=== PATIENT | male | born 1930 | race Caucasian/White ===

== ENCOUNTER 2016-11-06 20:55 | Observation (INO) | payer OTHER ==
[~2016-11-06] VITALS: Ht 180.3 cm; Wt 50.7 kg
[2016-11-06 21:50] LABS: HEMATOCRIT 48.6 % (38.0-50.0); MCH 31.8 PG (29.0-34.0); MCHC 33.3 G/DL (30.0-36.0); MCV 95.5 FL (86-99); MEAN PLAT.VOLUME 9.8 uM^3 (9.0-12.4); PLATELET COUNT 151 K/uL (156-360); RBC DIS.WIDTH-CV 12.7 % (11.8-14.6); RBC DIS.WIDTH-SD 45.3 % (39-53); RED BLOOD COUNT 5.09 M/uL (4.00-5.50); WHITE BLOOD COUNT 6.8 K/uL (4.1-10.2)
[2016-11-06 21:58] LABS: CHLORIDE 111 mEq/L (99-109); POTASSIUM 4.9 mEq/L (3.7-5.4); SODIUM 143 mEq/L (136-147)
[2016-11-06 22:00] LABS: GLUCOSE 97 mg/dL (70-99)
[2016-11-06 22:01] LABS: ANION GAP 14 MEQ/L (2-14)
[2016-11-06 22:04] LABS: GFR ESTIMATE (CALCULATED) 41 mL/min/; UREA NITROGEN (BUN) 51 mg/dL (9-23)
[2016-11-06 23:59] LABS: INTER. NORMALIZED RATIO 1.1; PROTHROMBIN TIME 11.7 (9.2-11.2); PTT 28.5 (25-32)
[2016-11-07 00:07] LABS: TROP-I INTERPRETATION NEGATIVE; TROPONIN-I < 0.01 ng/mL (0.0-0.30)
[2016-11-07] MEDS ORDERED: ALEVE220 MG PO (00:42)
[2016-11-07] MEDS ORDERED: PROAIR HFA8.5 GM IH (00:42)
[2016-11-07] MEDS ORDERED: ALBUTEROL2.5 MG/3 M IH (00:42)
[2016-11-07] MEDS ORDERED: PROSTATE MEDICATION PO (00:48)
[2016-11-07 05:06] VITALS: BP 176/85
[2016-11-07 06:28] VITALS: BP 128/59
[2016-11-07 06:37] LABS: ALKALINE PHOSPHATASE 64 IU/L (3-129); ANION GAP 11 MEQ/L (2-14); CHLORIDE 113 MEQ/L (99-109); GFR ESTIMATE (CALCULATED) 44 mL/min/; GLUCOSE 138 mg/dL (70-99); POTASSIUM 4.7 MEQ/L (3.7-5.4); SAMPLE HEMOLYSIS CHECK 0; SAMPLE ICTERIC CHECK 0; SAMPLE LIPEMIA CHECK 0; SODIUM 145 MEQ/L (136-147); UREA NITROGEN (BUN) 47 mg/dL (9-23)
[2016-11-07 06:45] LABS: HEMATOCRIT 45.4 % (38.0-50.0); MCH 30.6 PG (29.0-34.0); MCHC 32.2 G/DL (30.0-36.0); MCV 95.2 FL (86-99); MEAN PLAT.VOLUME 9.9 uM^3 (9.0-12.4); PLATELET COUNT 144 K/uL (156-360); RBC DIS.WIDTH-CV 12.5 % (11.8-14.6); RBC DIS.WIDTH-SD 44.2 % (39-53); RED BLOOD COUNT 4.77 M/uL (4.00-5.50)
[2016-11-07 06:56] LABS: WHITE BLOOD COUNT 4.4 K/uL (4.1-10.2)
[2016-11-07 08:48] VITALS: BP 143/75
[2016-11-07 11:54] VITALS: BP 130/63
[2016-11-07] MEDS ORDERED: FLOMAX0.4 MG PO (16:01)
[2016-11-07 17:09] VITALS: BP 128/60
[2016-11-07 20:40] VITALS: BP 135/64
[2016-11-08] VITALS: BP 116/62
[2016-11-08 03:22] VITALS: BP 115/62
[2016-11-08 06:52] LABS: ANION GAP 10 MEQ/L (2-14); CHLORIDE 113 MEQ/L (99-109); GFR ESTIMATE (CALCULATED) 47 mL/min/; GLUCOSE 132 mg/dL (70-99); POTASSIUM 4.3 MEQ/L (3.7-5.4); SAMPLE HEMOLYSIS CHECK 0; SAMPLE ICTERIC CHECK 0; SAMPLE LIPEMIA CHECK 0; SODIUM 141 MEQ/L (136-147); UREA NITROGEN (BUN) 48 mg/dL (9-23)
[2016-11-08 09:00] VITALS: BP 130/58
[2016-11-08] MEDS ORDERED: AZITHROMYCIN500 M1 PO (11:52)
[2016-11-08] MEDS ORDERED: SPIRIVA RESPIMAT4 GM IH (11:52)
[2016-11-08] MEDS ORDERED: ADVAIR HFA120 INHALA IH (11:52)
[2016-11-08] MEDS ORDERED: PREDNISONE10 MG PO (11:52)
[2016-11-08 12:03] VITALS: BP 116/59
== END 2016-11-08 14:27 | disposition home health service (06) ==
LOC: EME 20:55 → EDOF 11-07 02:38 → 5WEST 11-07 02:38 → EDOF 11-07 02:38 → 5WEST 11-07 04:35
PROVIDERS: Internal Medicine
DX: J44.1 Chronic obstructive pulmonary disease with (acute) exacerbation (principal); N17.9 Acute kidney failure, unspecified; E87.2 Acidosis
CPT/HCPCS: 71010; 80048; 80053; 83605; 83880; 84484; 85027; 85610; 85730; 87040; 93005; 94640; 94640 76; 99202; 99281; 99285; G0378; G8978 GP CJ; G8979 GP CI; G8987 GO CJ; G8988 CI; G8989 GO CH; J1956; J2930; J7030

== ENCOUNTER 2017-04-06 14:34 | Emergency (ER) | payer OTHER ==
[~2017-04-06] VITALS: Ht 175.3 cm; Wt 53.1 kg
[~2017-04-06 14:34] MED LIST: ADVAIR HFA120 INHALA IH; ALBUTEROL2.5 MG/3 M IH; ALEVE220 MG PO; AZITHROMYCIN500 M1 PO; FLOMAX0.4 MG PO; PREDNISONE10 MG PO; PROAIR HFA8.5 GM IH; PROSTATE MEDICATION PO; SPIRIVA RESPIMAT4 GM IH
[2017-04-06 16:08] LABS: ADD MIUA? YES; BILIRUBIN NEGATIVE; BLOOD LARGE; GLUCOSE (STRIP) NEGATIVE; KETONES NEGATIVE; LEUKOCYTES NEGATIVE; NITRITE NEGATIVE; PROTEIN (STRIP) 100; SPECIFIC GRAVITY 1.019 (1.000-1.030); UROBILINOGEN 0.2 MG/DL (0.2-1.0)
[2017-04-06 16:13] LABS: COLOR RED ((YELLOW))
[2017-04-06 16:29] LABS: EPITHELIAL CELLS NONE SEEN /HPF; RED BLOOD CELLS TNTC /HPF (0-5)
[2017-04-06 16:30] LABS: CASTS NONE SEEN /LPF; CRYSTALS NONE SEEN; MUCUS NONE SEEN /LPF; UCUL ADDED? YES
[2017-04-06] MEDS ORDERED: FLOMAX0.4 MG PO (16:35)
[2017-04-06 17:15] VITALS: BP 162/83
== END 2017-04-06 17:25 | disposition home or self-care (01) ==
LOC: EME 14:34
PROVIDERS: Emergency Medicine
PROC: 0T9B70Z Drainage of Bladder with Drainage Device, Via Natural or Artificial Opening (ICD-10-PCS; principal; 2017-04-06)
DX: R33.9 Retention of urine, unspecified (principal); R31.9 Hematuria, unspecified; J44.9 Chronic obstructive pulmonary disease, unspecified; Z87.891 Personal history of nicotine dependence
CPT/HCPCS: 81003; 87086; 99281; 99284

== ENCOUNTER → 2017-06-26 | Outpatient (CLI) | payer MEDICARE, OTHER | END | disposition home or self-care (01) | LOC: CDC 14:05 | DX: Z01.810 Encounter for preprocedural cardiovascular examination (principal) | CPT/HCPCS: 93000 ==

== ENCOUNTER 2017-11-12 10:47 | Inpatient (IN) | payer OTHER ==
[~2017-11-12] VITALS: Ht 179.1 cm; Wt 50.4 kg
[2017-11-12 12:01] LABS: BASE EXCESS 7.7 mEq/L (-3 to +3); PCO2 38 mm Hg (35-45); PO2 46 mm Hg (80-100); pH 7.52 (7.35-7.45)
[2017-11-12 12:05] LABS: DEVICE NC; O2 FLOW 2 L/MIN; SITE LB
[2017-11-12 12:06] LABS: COMMENTS - BLOOD GASES C+
[2017-11-12 12:14] LABS: APPEARANCE TURBID ((CLEAR)); BILIRUBIN NEGATIVE; BLOOD MODERATE; COLOR AMBER ((YELLOW)); GLUCOSE (STRIP) 50; KETONES 5; LEUKOCYTES MODERATE; NITRITE NEGATIVE; PROTEIN (STRIP) 100; SPECIFIC GRAVITY 1.015 (1.000-1.030); UROBILINOGEN 0.2 MG/DL (0.2-1.0)
[2017-11-12 12:56] LABS: BASOPHIL (%) 0.3 % (0-1); BASOPHIL COUNT 0.1 K/uL (0-0.1); EOSINOPHIL (%) 0 % (0-5); HEMATOCRIT 59.9 % (38.0-50.0); HEMOGLOBIN 20.8 G/DL (12.5-16.6); IMMATURE GRANULOCYTE (%) 0.5 % (0.0-0.7); MCH 32.3 PG (29.0-34.0); MCHC 34.7 G/DL (30.0-36.0); MONOCYTE (%) 9.9 % (3-12); MONOCYTE COUNT 1.9 K/uL (0-0.8); NEUTROPHIL (%) 84.3 % (45-76); NEUTROPHIL COUNT 16.3 K/uL (1.8-6.4); PLATELET COUNT 167 K/uL (156-360); RBC DIS.WIDTH-CV 13.2 % (11.8-14.6); RED BLOOD COUNT 6.44 M/uL (4.00-5.50); WHITE BLOOD COUNT 19.3 K/uL (4.1-10.2)
[2017-11-12 13:04] LABS: ALBUMIN 4.3 g/dL (3.2-4.8); CHLORIDE 88 mEq/L (99-109); POTASSIUM 4.9 mEq/L (3.7-5.4); SODIUM 147 mEq/L (136-147)
[2017-11-12 13:06] LABS: GLUCOSE 169 mg/dL (70-99)
[2017-11-12 13:06] LABS: EPITHELIAL CELLS 1+ /HPF; WHITE BLOOD CELLS TNTC /HPF (0-5)
[2017-11-12 13:07] LABS: TOTAL PROTEIN 7.9 g/dL (6.4-8.3)
[2017-11-12 13:08] LABS: TOTAL BILIRUBIN 1.9 mg/dL (0.0-1.0)
[2017-11-12 13:08] LABS: BACTERIA 1+ /HPF; MUCUS NONE SEEN /LPF; UCUL ADDED? YES
[2017-11-12 13:10] LABS: ALKALINE PHOSPHATASE 97 IU/L (3-129); CREATININE 5.4 mg/dL (0.6-1.3); GFR ESTIMATE (CALCULATED) 11 mL/min/ (58.99-99999)
[2017-11-12 13:12] LABS: AST (GOT) 42 IU/L (2-34); UREA NITROGEN (BUN) 132 mg/dL (9-23)
[2017-11-12 13:13] LABS: ALT (GPT) 23 IU/L (3-49)
[2017-11-12 13:15] LABS: TROP-I INTERPRETATION NEGATIVE; TROPONIN-I 0.24 ng/mL (0.0-0.30)
[2017-11-12 13:26] LABS: AMPHETAMINE NEGATIVE (500 ng/mL); BARBITURATES NEGATIVE (200 ng/mL); BENZODIAZEPINES NEGATIVE (150 ng/mL); BUPRENORPHINE NEGATIVE (10 ng/mL); COCAINE NEGATIVE (150 ng/mL); METHADONE NEGATIVE (200 ng/mL); METHAMPHETAMINE NEGATIVE (500 ng/mL); OPIATES (MORPHINE) NEGATIVE (100 ng/mL); OXYCODONE NEGATIVE (100 ng/mL); PHENCYCLIDINE NEGATIVE (25 ng/mL); PROPOXYPHENE NEGATIVE (300 ng/mL); THC CANNABINOIDS NEGATIVE (50 ng/mL); TRICYCLIC ANTIDEPRESSANTS NEGATIVE (300 ng/mL)
[2017-11-12] MEDS ORDERED: BISAC-EVAC10 MG PR (15:24)
[2017-11-12] MEDS ORDERED: COMPAZINE10 MG PO (15:25)
[2017-11-12] MEDS ORDERED: ATIVAN0.5 MG PO (15:26)
[2017-11-12] MEDS ORDERED: MORPHINE CON20 MG/M1 PO (15:26)
[2017-11-12] MEDS ORDERED: ANASPAZ0.125 MG PO (15:27)
[2017-11-12] MEDS ORDERED: HALOPERIDOL2 MG/1 ML PO (15:27)
[2017-11-12] MEDS ORDERED: COLACE100 MG PO (15:28)
[2017-11-12] MEDS ORDERED: ACEPHEN650 MG PR (15:28)
[2017-11-12] MEDS ORDERED: ALEVE220 MG PO (15:29)
[2017-11-12] MEDS ORDERED: DUONEB 2.5-0.5 M3 ML AEROSOL (15:30)
[2017-11-12] MEDS ORDERED: DECADRON2 MG PO (15:30)
[2017-11-12] MEDS ORDERED: COUGH SYRU100 MG/5 M PO (15:31)
[2017-11-12] MEDS ORDERED: SENNA S TABLET1 EACH PO (15:31)
[2017-11-12 17:45] LABS: BASE EXCESS 5.6 mEq/L (-3 to +3); BICARBONATE 30.6 mEq/L (22-26); CARBOXY HGB 1.6 % (0-5); METHEMOGLOBIN 0.9 % (0-1.5); PCO2 44 mm Hg (35-45); PO2 60 mm Hg (80-100); SITE RR; pH 7.45 (7.35-7.45)
[2017-11-12 17:46] LABS: COMMENTS - BLOOD GASES A+C+; DEVICE NC; O2 FLOW 3 L/MIN
[2017-11-12 18:04] LABS: ALBUMIN 3.4 g/dL (3.2-4.8); POTASSIUM 4.2 mEq/L (3.7-5.4); SODIUM 149 mEq/L (136-147)
[2017-11-12 18:05] LABS: MAGNESIUM 2.7 mg/dL (1.3-2.7)
[2017-11-12 18:07] LABS: CHLORIDE 98 mEq/L (99-109); GLUCOSE 117 mg/dL (70-99)
[2017-11-12 18:08] LABS: TOTAL PROTEIN 6.2 g/dL (6.4-8.3)
[2017-11-12 18:09] LABS: TOTAL BILIRUBIN 1.6 mg/dL (0.0-1.0)
[2017-11-12 18:10] LABS: ALKALINE PHOSPHATASE 76 IU/L (3-129); CREATININE 5.1 mg/dL (0.6-1.3); GFR ESTIMATE (CALCULATED) 11 mL/min/ (58.99-99999); PHOSPHORUS 7.6 mg/dL (2.5-4.9)
[2017-11-12 18:12] LABS: AST (GOT) 35 IU/L (2-34)
[2017-11-12 18:13] LABS: ALT (GPT) 21 IU/L (3-49)
[2017-11-12 18:14] LABS: UREA NITROGEN (BUN) 128 mg/dL (9-23)
[2017-11-12 18:44] LABS: HIGH-SENS C-REACTIVE PROTEIN 3.82 MG/DL (0.02-0.20)
[2017-11-12 21:21] VITALS: BP 113/63
[2017-11-12 21:25] VITALS: BP 115/69
[2017-11-12 22:02] VITALS: BP 98/42
[2017-11-12 23:01] VITALS: BP 118/65
[2017-11-13] VITALS (20 sets, daily range): BP systolic 97–127; BP diastolic 51–68
[2017-11-13 06:38] LABS: HEMATOCRIT 47.7 % (38.0-50.0); MCH 31.5 PG (29.0-34.0); MCHC 32.7 G/DL (30.0-36.0); MCV 96.2 FL (86-99); RBC DIS.WIDTH-CV 13.6 % (11.8-14.6); RBC DIS.WIDTH-SD 48.7 % (39-53); WHITE BLOOD COUNT 10.6 K/uL (4.1-10.2)
[2017-11-13 06:39] LABS: HEMOGLOBIN 15.6 G/DL (12.5-16.6); RED BLOOD COUNT 4.96 M/uL (4.00-5.50)
[2017-11-13 07:00] LABS: PLAT.SUFFICIENCY DECREASED
[2017-11-13 07:01] LABS: PLATELET COUNT 105 K/uL (156-360)
[2017-11-13 07:18] LABS: CHLORIDE 103 MEQ/L (99-109); CREATININE 4.3 MG/DL (0.6-1.3); GFR ESTIMATE (CALCULATED) 14 mL/min/ (58.99-99999); GLUCOSE 119 mg/dL (70-99); MAGNESIUM 2.7 mg/dl (1.3-2.7); PHOSPHORUS 6.4 mg/dL (2.5-4.9); POTASSIUM 3.9 MEQ/L (3.7-5.4); SODIUM 151 MEQ/L (136-147)
[2017-11-13 07:28] LABS: UREA NITROGEN (BUN) 123 mg/dL (9-23)
[2017-11-13 10:37] LABS: ALBUMIN 2.9 G/DL (3.2-4.8); ALKALINE PHOSPHATASE 57 IU/L (3-129); ALT (GPT) 17 IU/L (3-49); AST (GOT) 31 IU/L (2-34); DIRECT BILIRUBIN 0.3 mg/dL (0.0-0.3); TOTAL BILIRUBIN 1.4 MG/DL (0.0-1.0); TOTAL PROTEIN 5.1 G/DL (6.4-8.3)
[2017-11-13 10:48] LABS: CARBOXY HGB 2.1 % (0-5); METHEMOGLOBIN 1.7 % (0-1.5); PO2 56 mm Hg (80-100); pH 7.43 (7.35-7.45)
[2017-11-13 10:49] LABS: BICARBONATE 25.2 mEq/L (22-26); COMMENTS - BLOOD GASES A+C+; DEVICE NC; MECHANICAL RATE 15 resp/min; O2 FLOW 2 L/MIN; PCO2 38 mm Hg (35-45); SITE RB
[2017-11-13 15:34] LABS: HEMATOCRIT 45.9 % (38.0-50.0); HEMOGLOBIN 14.8 G/DL (12.5-16.6); MCH 31.4 PG (29.0-34.0); MCHC 32.2 G/DL (30.0-36.0); MCV 97.5 FL (86-99); PLATELET COUNT 92 K/uL (156-360); RBC DIS.WIDTH-CV 13.4 % (11.8-14.6); RED BLOOD COUNT 4.71 M/uL (4.00-5.50); WHITE BLOOD COUNT 10.5 K/uL (4.1-10.2)
[2017-11-13 15:47] LABS: CHLORIDE 111 MEQ/L (99-109); GLUCOSE 114 mg/dL (70-99); POTASSIUM 3.7 MEQ/L (3.7-5.4); SODIUM 150 MEQ/L (136-147)
[2017-11-13 15:53] LABS: UREA NITROGEN (BUN) 116 mg/dL (9-23)
[2017-11-13 15:54] LABS: CREATININE 3.5 MG/DL (0.6-1.3); GFR ESTIMATE (CALCULATED) 18 mL/min/ (58.99-99999); VANCOMYCIN, TROUGH 6.9 MCG/ML (10-20)
[2017-11-13 16:15] LABS: CREATINE KINASE 414 IU/L (1-294)
[2017-11-14] VITALS (11 sets, daily range): BP systolic 112–1520; BP diastolic 49–73
[2017-11-15 03:49] VITALS: BP 134/68
[2017-11-15 07:05] VITALS: BP 122/58
[2017-11-15 11:00] VITALS: BP 128/60
[2017-11-15 12:32] LABS: ALBUMIN 2.9 G/DL (3.2-4.8); ALKALINE PHOSPHATASE 43 IU/L (3-129); ALT (GPT) 22 IU/L (3-49); AST (GOT) 33 IU/L (2-34); CHLORIDE 115 MEQ/L (99-109); POTASSIUM 3.4 MEQ/L (3.7-5.4); SODIUM 151 MEQ/L (136-147); TOTAL PROTEIN 4.7 G/DL (6.4-8.3); UREA NITROGEN (BUN) 59 mg/dL (9-23)
[2017-11-15 12:34] LABS: CREATININE 1.7 MG/DL (0.6-1.3); GFR ESTIMATE (CALCULATED) 41 mL/min/ (58.99-99999); GLUCOSE 178 mg/dL (70-99); TOTAL BILIRUBIN 0.8 MG/DL (0.0-1.0)
[2017-11-15 15:45] VITALS: BP 122/59
[2017-11-15 19:15] VITALS: BP 130/58
[2017-11-15 22:28] VITALS: BP 131/59
[2017-11-16 04:00] VITALS: BP 133/68
[2017-11-16 06:52] VITALS: BP 107/60
[2017-11-16 07:19] LABS: BASOPHIL (%) 0.1 % (0-1); EOSINOPHIL (%) 0 % (0-5); HEMATOCRIT 40.8 % (38.0-50.0); HEMOGLOBIN 13.3 G/DL (12.5-16.6); IMMATURE GRANULOCYTE (%) 0.7 % (0.0-0.7); LYMPHOCYTE (%) 3.6 % (15-42); LYMPHOCYTE COUNT 0.5 K/uL (1.0-2.8); MCHC 32.6 G/DL (30.0-36.0); MCV 98.3 FL (86-99); MONOCYTE (%) 9.5 % (3-12); MONOCYTE COUNT 1.3 K/uL (0-0.8); NEUTROPHIL (%) 86.1 % (45-76); NEUTROPHIL COUNT 12.1 K/uL (1.8-6.4); PLATELET COUNT 71 K/uL (156-360); RBC DIS.WIDTH-CV 13.4 % (11.8-14.6); RBC DIS.WIDTH-SD 48.8 % (39-53); RED BLOOD COUNT 4.15 M/uL (4.00-5.50); WHITE BLOOD COUNT 14.1 K/uL (4.1-10.2)
[2017-11-16 07:39] LABS: CHLORIDE 115 MEQ/L (99-109); CREATININE 1.4 MG/DL (0.6-1.3); GFR ESTIMATE (CALCULATED) 51 mL/min/ (58.99-99999); GLUCOSE 124 mg/dL (70-99); SODIUM 148 MEQ/L (136-147); UREA NITROGEN (BUN) 45 mg/dL (9-23)
[2017-11-16 07:43] LABS: POTASSIUM 4.6 MEQ/L (3.7-5.4)
[2017-11-16 08:04] LABS: APPEARANCE CLEAR ((CLEAR)); BILIRUBIN NEGATIVE; BLOOD MODERATE; COLOR YELLOW ((YELLOW)); GLUCOSE (STRIP) >=500; KETONES NEGATIVE; LEUKOCYTES LARGE; NITRITE NEGATIVE; PROTEIN (STRIP) NEGATIVE; SPECIFIC GRAVITY 1.017 (1.000-1.030); UROBILINOGEN 0.2 MG/DL (0.2-1.0)
[2017-11-16 08:39] LABS: BACTERIA NONE SEEN /HPF; EPITHELIAL CELLS RARE /HPF; MUCUS NONE SEEN /LPF; RED BLOOD CELLS 0-5 /HPF (0-5); WHITE BLOOD CELLS 15-20 /HPF (0-5)
[2017-11-16 10:09] LABS: UR CREATININE CONCENTRATION 71.7 MG/DL
[2017-11-16 10:59] LABS: EOSINOPHILS,URINE NONE SEEN
[2017-11-16 11:00] VITALS: BP 128/63
[2017-11-16 14:35] VITALS: BP 147/68
[2017-11-16 19:01] VITALS: BP 160/76
[2017-11-16 22:52] VITALS: BP 128/60
[2017-11-17 04:04] VITALS: BP 137/81
[2017-11-17 05:57] LABS: BASOPHIL (%) 0.2 % (0-1); EOSINOPHIL (%) 0 % (0-5); HEMATOCRIT 38.8 % (38.0-50.0); HEMOGLOBIN 12.6 G/DL (12.5-16.6); IMMATURE GRANULOCYTE (%) 1.7 % (0.0-0.7); LYMPHOCYTE (%) 5.2 % (15-42); LYMPHOCYTE COUNT 0.7 K/uL (1.0-2.8); MCH 31.4 PG (29.0-34.0); MCHC 32.5 G/DL (30.0-36.0); MCV 96.8 FL (86-99); MONOCYTE (%) 11.3 % (3-12); MONOCYTE COUNT 1.5 K/uL (0-0.8); NEUTROPHIL (%) 81.6 % (45-76); NEUTROPHIL COUNT 10.7 K/uL (1.8-6.4); PLATELET COUNT 76 K/uL (156-360); RBC DIS.WIDTH-CV 13.2 % (11.8-14.6); RBC DIS.WIDTH-SD 47.5 % (39-53); RED BLOOD COUNT 4.01 M/uL (4.00-5.50); WHITE BLOOD COUNT 13.2 K/uL (4.1-10.2)
[2017-11-17 06:24] LABS: CHLORIDE 110 MEQ/L (99-109); CREATININE 1.2 MG/DL (0.6-1.3); GFR ESTIMATE (CALCULATED) > 59 mL/min/ (58.99-99999); POTASSIUM 3.8 MEQ/L (3.7-5.4); SODIUM 143 MEQ/L (136-147); UREA NITROGEN (BUN) 37 mg/dL (9-23)
[2017-11-17 06:25] LABS: GLUCOSE 82 mg/dL (70-99)
[2017-11-17 06:53] VITALS: BP 165/72
[2017-11-17] MEDS ORDERED: SPIRIVA RESPIMAT4 GM IH (10:14)
[2017-11-17] MEDS ORDERED: ADVAIR 250/501 DISK IH (10:14)
[2017-11-17] MEDS ORDERED: PREDNISONE10 MG PO (10:14)
[2017-11-17 11:19] VITALS: BP 130/69
[2017-11-17 13:43] LABS: Heparin Induced Plt Ab Negative (Negative)
[2017-11-18 09:36] LABS: UFH SRA Result Negative (Negative)
== END 2017-11-17 16:39 | DRG 191 ==
LOC: EME 10:47 → EDOF 17:57 → 4WEST 17:57 → ENRESERV 18:01 → 4WEST 21:07 → ENRESERV 11-14 13:08 → 5EAST 11-14 19:22
PROVIDERS: Emergency Medicine; Hospitalist; Internal Medicine; Internal Medicine Nephrology; Obstetrics & Gynecology; Specialist
DX: J44.1 Chronic obstructive pulmonary disease with (acute) exacerbation (principal); N17.9 Acute kidney failure, unspecified; E87.2 Acidosis; E86.0 Dehydration; E87.0 Hyperosmolality and hypernatremia; E87.1 Hypo-osmolality and hyponatremia; E87.6 Hypokalemia; F17.200 Nicotine dependence, unspecified, uncomplicated; J96.11 Chronic respiratory failure with hypoxia; J96.12 Chronic respiratory failure with hypercapnia; M81.0 Age-related osteoporosis without current pathological fracture; N18.3 Chronic kidney disease, stage 3 (moderate); N40.0 Benign prostatic hyperplasia without lower urinary tract symptoms; Z99.81 Dependence on supplemental oxygen; T39.395A Adverse effect of other nonsteroidal anti-inflammatory drugs [NSAID], initial encounter; K56.609 Unspecified intestinal obstruction, unspecified as to partial versus complete obstruction; D75.1 Secondary polycythemia; I12.9 Hypertensive chronic kidney disease with stage 1 through stage 4 chronic kidney disease, or unspecified chronic kidney disease
CPT/HCPCS: 36600; 70450; 71045; 72131; 74018; 74019; 74021; 74176; 80048; 80048 91; 80053; 80076; 80202; 81003; 82550; 82570; 82803; 83605; 83735; 84100; 84145 90; 84156; 84484; 85025; 85027; 86022 90; 86141; 87040; 87086; 87641; 89190; 93005; 94640; 94640 76; 94799; 97530 GP; 99202; 99281; 99285; C9113; J0692; J2310; J2543; J2930; J3370; J7030; J7050; J7120; J7512; S0030

== ENCOUNTER 2017-11-22 03:42 | Inpatient (IN) | payer OTHER ==
[~2017-11-22] VITALS: Ht 180.3 cm; Wt 45.5 kg
[~2017-11-22 03:42] MED LIST changes: +ACEPHEN650 MG PR; +ADVAIR 250/501 DISK IH; +ANASPAZ0.125 MG PO; +ATIVAN0.5 MG PO; +BISAC-EVAC10 MG PR; +COLACE100 MG PO; +COMPAZINE10 MG PO; +COUGH SYRU100 MG/5 M PO; +DECADRON2 MG PO; +DUONEB 2.5-0.5 M3 ML AEROSOL; +HALOPERIDOL2 MG/1 ML PO; +MORPHINE CON20 MG/M1 PO; +SENNA S TABLET1 EACH PO
[2017-11-22 04:54] LABS: BASOPHIL (%) 0.3 % (0-1); BASOPHIL COUNT 0.1 K/uL (0-0.1); EOSINOPHIL (%) 0 % (0-5); HEMATOCRIT 50.1 % (38.0-50.0); IMMATURE GRANULOCYTE (%) 0.8 % (0.0-0.7); LYMPHOCYTE COUNT 0.8 K/uL (1.0-2.8); MCH 32.3 PG (29.0-34.0); MCHC 33.5 G/DL (30.0-36.0); MCV 96.3 FL (86-99); MONOCYTE (%) 6.4 % (3-12); MONOCYTE COUNT 1.6 K/uL (0-0.8); NEUTROPHIL (%) 89.5 % (45-76); NEUTROPHIL COUNT 22.6 K/uL (1.8-6.4); RBC DIS.WIDTH-CV 13.4 % (11.8-14.6); RBC DIS.WIDTH-SD 47.7 % (39-53); WHITE BLOOD COUNT 25.2 K/uL (4.1-10.2)
[2017-11-22 04:59] LABS: CHLORIDE 102 mEq/L (99-109); HEMOGLOBIN 16.8 G/DL (12.5-16.6); PLATELET COUNT 184 K/uL (156-360); SODIUM 145 mEq/L (136-147)
[2017-11-22 05:00] LABS: POTASSIUM 4.7 mEq/L (3.7-5.4)
[2017-11-22 05:01] LABS: GLUCOSE 113 mg/dL (70-99)
[2017-11-22 05:05] LABS: CREATININE 1.6 mg/dL (0.6-1.3); GFR ESTIMATE (CALCULATED) 44 mL/min/ (58.99-99999)
[2017-11-22 05:06] LABS: UREA NITROGEN (BUN) 37 mg/dL (9-23)
[2017-11-22 05:43] LABS: APPEARANCE SL.HAZY ((CLEAR)); BILIRUBIN NEGATIVE; BLOOD NEGATIVE; COLOR YELLOW ((YELLOW)); GLUCOSE (STRIP) NEGATIVE; KETONES NEGATIVE; LEUKOCYTES TRACE; NITRITE NEGATIVE; PROTEIN (STRIP) 30; SPECIFIC GRAVITY 1.016 (1.000-1.030); UROBILINOGEN 0.2 MG/DL (0.2-1.0)
[2017-11-22 05:59] LABS: BACTERIA NONE SEEN /HPF; EPITHELIAL CELLS RARE /HPF; MUCUS TRACE /LPF; RED BLOOD CELLS 0-5 /HPF (0-5); UCUL ADDED? YES
[2017-11-22] MEDS ORDERED: CLARITIN,ALAVAR10 MG PO (10:59)
[2017-11-22] MEDS ORDERED: DUONEB 2.5-0.5 M3 ML AEROSOL ×2 (11:01→11:02)
[2017-11-22] MEDS ORDERED: ZOFRAN4 MG PO (11:03)
[2017-11-22 11:56] VITALS: BP 142/65
[2017-11-22 16:51] VITALS: BP 128/60
[2017-11-22 19:13] VITALS: BP 116/63
[2017-11-22 23:57] VITALS: BP 117/58
[2017-11-23 03:18] VITALS: BP 120/62
[2017-11-23 07:27] VITALS: BP 125/62
[2017-11-23 07:27] LABS: HEMATOCRIT 37.8 % (38.0-50.0); MCH 31.7 PG (29.0-34.0); MCHC 31.7 G/DL (30.0-36.0); RBC DIS.WIDTH-CV 13.6 % (11.8-14.6); RBC DIS.WIDTH-SD 50.1 % (39-53); WHITE BLOOD COUNT 7.6 K/uL (4.1-10.2)
[2017-11-23 07:29] LABS: RED BLOOD COUNT 3.78 M/uL (4.00-5.50)
[2017-11-23 07:31] LABS: ALBUMIN 2.3 G/DL (3.2-4.8); ALKALINE PHOSPHATASE 49 IU/L (3-129); ALT (GPT) 17 IU/L (3-49); AST (GOT) 17 IU/L (2-34); CHLORIDE 115 MEQ/L (99-109); CREATININE 1.5 MG/DL (0.6-1.3); GFR ESTIMATE (CALCULATED) 47 mL/min/ (58.99-99999); GLUCOSE 109 mg/dL (70-99); SODIUM 148 MEQ/L (136-147); TOTAL BILIRUBIN 1.1 MG/DL (0.0-1.0); UREA NITROGEN (BUN) 28 mg/dL (9-23)
[2017-11-23 07:52] LABS: PLAT.SUFFICIENCY ADEQUATE; PLATELET COUNT 137 K/uL (156-360)
[2017-11-23 14:54] VITALS: BP 133/61
[2017-11-23 19:31] VITALS: BP 128/58
[2017-11-23 23:50] VITALS: BP 127/62
[2017-11-24 03:47] VITALS: BP 133/60
[2017-11-24 06:55] VITALS: BP 135/68
[2017-11-24 06:58] LABS: BASOPHIL (%) 0.2 % (0-1); EOSINOPHIL (%) 0.6 % (0-5); HEMATOCRIT 37.6 % (38.0-50.0); HEMOGLOBIN 12.2 G/DL (12.5-16.6); IMMATURE GRANULOCYTE (%) 0.5 % (0.0-0.7); LYMPHOCYTE (%) 9.6 % (15-42); LYMPHOCYTE COUNT 0.6 K/uL (1.0-2.8); MCH 32.4 PG (29.0-34.0); MCHC 32.4 G/DL (30.0-36.0); MONOCYTE (%) 14.6 % (3-12); MONOCYTE COUNT 0.9 K/uL (0-0.8); NEUTROPHIL (%) 74.5 % (45-76); NEUTROPHIL COUNT 4.7 K/uL (1.8-6.4); PLATELET COUNT 120 K/uL (156-360); RBC DIS.WIDTH-CV 13.6 % (11.8-14.6); RBC DIS.WIDTH-SD 49.7 % (39-53); RED BLOOD COUNT 3.76 M/uL (4.00-5.50); WHITE BLOOD COUNT 6.4 K/uL (4.1-10.2)
[2017-11-24 07:05] LABS: CHLORIDE 113 MEQ/L (99-109); CREATININE 1.6 MG/DL (0.6-1.3); GFR ESTIMATE (CALCULATED) 44 mL/min/ (58.99-99999); GLUCOSE 87 mg/dL (70-99); POTASSIUM 3.5 MEQ/L (3.7-5.4); SODIUM 145 MEQ/L (136-147); UREA NITROGEN (BUN) 23 mg/dL (9-23)
[2017-11-24 15:25] VITALS: BP 146/66
[2017-11-24 23:25] VITALS: BP 133/64
[2017-11-25 06:11] LABS: BASOPHIL (%) 0.3 % (0-1); EOSINOPHIL (%) 0.7 % (0-5); HEMATOCRIT 39.3 % (38.0-50.0); HEMOGLOBIN 12.9 G/DL (12.5-16.6); IMMATURE GRANULOCYTE (%) 0.3 % (0.0-0.7); LYMPHOCYTE (%) 9.8 % (15-42); LYMPHOCYTE COUNT 0.6 K/uL (1.0-2.8); MCH 32.1 PG (29.0-34.0); MCHC 32.8 G/DL (30.0-36.0); MCV 97.8 FL (86-99); MONOCYTE (%) 14.1 % (3-12); MONOCYTE COUNT 0.9 K/uL (0-0.8); NEUTROPHIL (%) 74.8 % (45-76); NEUTROPHIL COUNT 4.6 K/uL (1.8-6.4); PLATELET COUNT 114 K/uL (156-360); RBC DIS.WIDTH-CV 13.3 % (11.8-14.6); RBC DIS.WIDTH-SD 48.1 % (39-53); RED BLOOD COUNT 4.02 M/uL (4.00-5.50); WHITE BLOOD COUNT 6.1 K/uL (4.1-10.2)
[2017-11-25 06:39] LABS: CHLORIDE 111 MEQ/L (99-109); CREATININE 1.6 MG/DL (0.6-1.3); GFR ESTIMATE (CALCULATED) 44 mL/min/ (58.99-99999); GLUCOSE 81 mg/dL (70-99); POTASSIUM 3.5 MEQ/L (3.7-5.4); SODIUM 146 MEQ/L (136-147); UREA NITROGEN (BUN) 23 mg/dL (9-23)
[2017-11-25 07:12] VITALS: BP 132/66
[2017-11-25 16:03] VITALS: BP 108/56
[2017-11-26 00:17] VITALS: BP 159/75
[2017-11-26 06:29] LABS: CHLORIDE 108 MEQ/L (99-109); CREATININE 1.6 MG/DL (0.6-1.3); GFR ESTIMATE (CALCULATED) 44 mL/min/ (58.99-99999); GLUCOSE 78 mg/dL (70-99); SODIUM 144 MEQ/L (136-147); UREA NITROGEN (BUN) 24 mg/dL (9-23)
[2017-11-26 06:52] VITALS: BP 123/61
[2017-11-26] MEDS ORDERED: DULERA 100 MCG/13 GM IH (12:51)
[2017-11-26] MEDS ORDERED: LORAZEPAM0.5 MG PO (12:52)
[2017-11-26] MEDS ORDERED: AUGMENTIN875 MG PO (12:52)
== END 2017-11-26 15:13 | DRG 299 ==
LOC: EME 03:42 → 2EAST 07:50 → EDOF 07:50 → ENRESERV 08:20 → EDOF 08:34 → ENRESERV 09:47 → 2EAST 11:41
PROVIDERS: Emergency Medicine; Family Medicine; Physician Assistant Surgical
DX: I71.4 Abdominal aortic aneurysm, without rupture (principal); J69.0 Pneumonitis due to inhalation of food and vomit; J44.9 Chronic obstructive pulmonary disease, unspecified; I77.1 Stricture of artery; E46 Unspecified protein-calorie malnutrition; J96.11 Chronic respiratory failure with hypoxia; J96.12 Chronic respiratory failure with hypercapnia; N17.9 Acute kidney failure, unspecified; E86.0 Dehydration; N18.9 Chronic kidney disease, unspecified; H91.90 Unspecified hearing loss, unspecified ear; Z87.891 Personal history of nicotine dependence; R13.10 Dysphagia, unspecified
CPT/HCPCS: 49405; 71045; 74176; 80048; 80053; 81003; 83605; 85025; 85027; 87040; 87077; 87086; 92526 GN; 92610 GN; 94640; 94640 76; 94760; 94799; 97530 GP; 99202; 99281; 99285; C1769; J2405; J2543; J3010; J7030; J7042; J7050; S0028

== ENCOUNTER 2017-11-29 20:07 | Inpatient (IN) | payer OTHER ==
[~2017-11-29] VITALS: Ht 180.3 cm; Wt 54.0 kg
[~2017-11-29 20:07] MED LIST changes: +AUGMENTIN875 MG PO; +CLARITIN,ALAVAR10 MG PO; +DULERA 100 MCG/13 GM IH; +LORAZEPAM0.5 MG PO; +ZOFRAN4 MG PO
[2017-11-29 21:07] LABS: ALBUMIN 2.8 g/dL (3.2-4.8); CHLORIDE 110 mEq/L (99-109)
[2017-11-29 21:08] LABS: POTASSIUM 4.4 mEq/L (3.7-5.4); SODIUM 145 mEq/L (136-147)
[2017-11-29 21:10] LABS: GLUCOSE 96 mg/dL (70-99); TOTAL PROTEIN 5.8 g/dL (6.4-8.3)
[2017-11-29 21:12] LABS: TOTAL BILIRUBIN 0.5 mg/dL (0.0-1.0)
[2017-11-29 21:13] LABS: ALKALINE PHOSPHATASE 66 IU/L (3-129); CREATININE 1.4 mg/dL (0.6-1.3); GFR ESTIMATE (CALCULATED) 51 mL/min/ (58.99-99999)
[2017-11-29 21:14] LABS: TROP-I INTERPRETATION NEGATIVE; TROPONIN-I 0.03 ng/mL (0.0-0.30)
[2017-11-29 21:15] LABS: AST (GOT) 41 IU/L (2-34); UREA NITROGEN (BUN) 33 mg/dL (9-23)
[2017-11-29 21:16] LABS: ALT (GPT) 36 IU/L (3-49)
[2017-11-29 21:17] LABS: LIPASE 61 U/L (1.0-51.0)
[2017-11-30] MEDS ORDERED: DUONEB 2.5-0.5 M3 ML AEROSOL ×2 (01:23→01:28)
[2017-11-30] MEDS ORDERED: ALEVE220 MG PO (01:23)
[2017-11-30] MEDS ORDERED: CLARITIN,ALAVAR10 MG PO (01:24)
[2017-11-30] MEDS ORDERED: AMOX TR-K CLV1 EAC4 PO (01:24)
[2017-11-30] MEDS ORDERED: COLACE100 MG PO (01:25)
[2017-11-30] MEDS ORDERED: DULCOLAX10 MG PR (01:26)
[2017-11-30] MEDS ORDERED: DULERA 100 MCG/13 GM IH (01:26)
[2017-11-30] MEDS ORDERED: COUGH SYRU100 MG/5 M PO (01:30)
[2017-11-30] MEDS ORDERED: LEVSIN0.125 MG PO (01:31)
[2017-11-30] MEDS ORDERED: ATIVAN0.5 MG PO (01:32)
[2017-11-30] MEDS ORDERED: MILK OF MAGN PO (01:32)
[2017-11-30] MEDS ORDERED: ZOFRAN4 MG PO (01:33)
[2017-11-30] MEDS ORDERED: TRAMADOL HCL50 MG PO (01:33)
[2017-11-30 04:17] VITALS: BP 118/60
[2017-11-30 06:28] LABS: MCH 31.9 PG (29.0-34.0); MCHC 32.4 G/DL (30.0-36.0); MCV 98.6 FL (86-99); PLATELET COUNT 102 K/uL (156-360); RBC DIS.WIDTH-CV 13.8 % (11.8-14.6); RBC DIS.WIDTH-SD 49.9 % (39-53); RED BLOOD COUNT 3.45 M/uL (4.00-5.50); WHITE BLOOD COUNT 4.3 K/uL (4.1-10.2)
[2017-11-30 06:56] LABS: BASOPHIL (%) 0.5 % (0-1); EOSINOPHIL (%) 0.5 % (0-5); IMMATURE GRANULOCYTE (%) 0.5 % (0.0-0.7); LYMPHOCYTE (%) 21.5 % (15-42); LYMPHOCYTE COUNT 0.9 K/uL (1.0-2.8); MONOCYTE (%) 13.4 % (3-12); MONOCYTE COUNT 0.6 K/uL (0-0.8); NEUTROPHIL (%) 63.6 % (45-76); NEUTROPHIL COUNT 2.8 K/uL (1.8-6.4)
[2017-11-30 07:27] VITALS: BP 115/57
[2017-11-30 11:15] VITALS: BP 110/58
[2017-11-30 16:14] VITALS: BP 147/66
[2017-11-30 23:21] VITALS: BP 121/56
[2017-12-01 07:07] LABS: HEMATOCRIT 34.3 % (38.0-50.0); HEMOGLOBIN 10.9 G/DL (12.5-16.6); MCH 31.2 PG (29.0-34.0); MCHC 31.8 G/DL (30.0-36.0); MCV 98.3 FL (86-99); PLATELET COUNT 123 K/uL (156-360); RBC DIS.WIDTH-CV 13.6 % (11.8-14.6); RED BLOOD COUNT 3.49 M/uL (4.00-5.50); WHITE BLOOD COUNT 3.9 K/uL (4.1-10.2)
[2017-12-01 07:31] LABS: CHLORIDE 110 MEQ/L (99-109); CREATININE 1.1 MG/DL (0.6-1.3); GFR ESTIMATE (CALCULATED) > 59 mL/min/ (58.99-99999); LIPASE 15 U/L (1.0-51.0); POTASSIUM 4.1 MEQ/L (3.7-5.4); SODIUM 139 MEQ/L (136-147); UREA NITROGEN (BUN) 19 mg/dL (9-23)
[2017-12-01 07:34] LABS: GLUCOSE 151 mg/dL (70-99)
[2017-12-01 07:41] LABS: ABS NEUTROPHIL COUNT 2.3; ANISOCYTOSIS 1+; ATYPICAL LYMPHOCYTE 12.7 %; BAND NEUTROPHILS 6.4 % (0-8.0); EOSINOPHIL ABS CT 0; EOSINOPHILS 0.9 % (0-5.0); LYMPHOCYTES 17.3 % (15.0-45.0); MACROCYTES 1+; MICROCYTOSIS 1+; MONOCYTES 9.1 % (0-9.0); SEG.NEUTROPHILS 53.6 % (46.0-76.0); SMUDGE CELLS 21.8
[2017-12-01 08:24] VITALS: BP 105/54
[2017-12-01 16:19] VITALS: BP 147/63
[2017-12-01 23:09] VITALS: BP 124/58
[2017-12-02 06:42] LABS: BASOPHIL (%) 0.5 % (0-1); EOSINOPHIL (%) 1.5 % (0-5); EOSINOPHIL COUNT 0.1 K/uL (0-0.3); HEMATOCRIT 35.4 % (38.0-50.0); HEMOGLOBIN 11.3 G/DL (12.5-16.6); IMMATURE GRANULOCYTE (%) 0.8 % (0.0-0.7); LYMPHOCYTE (%) 21.4 % (15-42); LYMPHOCYTE COUNT 0.8 K/uL (1.0-2.8); MCH 30.9 PG (29.0-34.0); MCHC 31.9 G/DL (30.0-36.0); MCV 96.7 FL (86-99); MONOCYTE (%) 19.3 % (3-12); MONOCYTE COUNT 0.8 K/uL (0-0.8); NEUTROPHIL (%) 56.5 % (45-76); NEUTROPHIL COUNT 2.2 K/uL (1.8-6.4); PLATELET COUNT 158 K/uL (156-360); RBC DIS.WIDTH-CV 13.2 % (11.8-14.6); RBC DIS.WIDTH-SD 47.4 % (39-53); RED BLOOD COUNT 3.66 M/uL (4.00-5.50); WHITE BLOOD COUNT 3.9 K/uL (4.1-10.2)
[2017-12-02 07:07] LABS: CHLORIDE 106 MEQ/L (99-109); CREATININE 1.4 MG/DL (0.6-1.3); GFR ESTIMATE (CALCULATED) 51 mL/min/ (58.99-99999); POTASSIUM 3.8 MEQ/L (3.7-5.4); SODIUM 138 MEQ/L (136-147); UREA NITROGEN (BUN) 14 mg/dL (9-23)
[2017-12-02 07:08] LABS: GLUCOSE 92 mg/dL (70-99)
[2017-12-02 07:26] VITALS: BP 121/61
[2017-12-02 16:55] VITALS: BP 108/59
[2017-12-03 00:18] VITALS: BP 109/73
[2017-12-03 06:12] LABS: BASOPHIL (%) 0.6 % (0-1); EOSINOPHIL (%) 1.3 % (0-5); EOSINOPHIL COUNT 0.1 K/uL (0-0.3); HEMATOCRIT 41.8 % (38.0-50.0); IMMATURE GRANULOCYTE (%) 1.8 % (0.0-0.7); LYMPHOCYTE (%) 14.6 % (15-42); LYMPHOCYTE COUNT 0.8 K/uL (1.0-2.8); MCH 31.1 PG (29.0-34.0); MCHC 32.3 G/DL (30.0-36.0); MCV 96.3 FL (86-99); MONOCYTE (%) 16.3 % (3-12); MONOCYTE COUNT 0.9 K/uL (0-0.8); NEUTROPHIL (%) 65.4 % (45-76); NEUTROPHIL COUNT 3.5 K/uL (1.8-6.4); PLATELET COUNT 189 K/uL (156-360); RBC DIS.WIDTH-CV 13.2 % (11.8-14.6); RBC DIS.WIDTH-SD 47.4 % (39-53); RED BLOOD COUNT 4.34 M/uL (4.00-5.50); WHITE BLOOD COUNT 5.4 K/uL (4.1-10.2)
[2017-12-03 06:21] LABS: HEMOGLOBIN 13.5 G/DL (12.5-16.6)
[2017-12-03 06:33] LABS: CHLORIDE 105 MEQ/L (99-109); CREATININE 1.4 MG/DL (0.6-1.3); GFR ESTIMATE (CALCULATED) 51 mL/min/ (58.99-99999); GLUCOSE 107 mg/dL (70-99); POTASSIUM 4.4 MEQ/L (3.7-5.4); SODIUM 138 MEQ/L (136-147); UREA NITROGEN (BUN) 13 mg/dL (9-23)
[2017-12-03 07:15] VITALS: BP 121/80
[2017-12-03 15:45] VITALS: BP 104/60
[2017-12-04] VITALS: BP 115/60
[2017-12-04 05:48] LABS: BASOPHIL (%) 0.2 % (0-1); EOSINOPHIL COUNT 0.1 K/uL (0-0.3); HEMATOCRIT 38.2 % (38.0-50.0); HEMOGLOBIN 12.3 G/DL (12.5-16.6); IMMATURE GRANULOCYTE (%) 1.4 % (0.0-0.7); LYMPHOCYTE (%) 15.1 % (15-42); MCH 30.9 PG (29.0-34.0); MCHC 32.2 G/DL (30.0-36.0); MONOCYTE (%) 16.7 % (3-12); MONOCYTE COUNT 1.1 K/uL (0-0.8); NEUTROPHIL (%) 65.6 % (45-76); NEUTROPHIL COUNT 4.1 K/uL (1.8-6.4); PLATELET COUNT 220 K/uL (156-360); RBC DIS.WIDTH-CV 13.2 % (11.8-14.6); RBC DIS.WIDTH-SD 47.3 % (39-53); RED BLOOD COUNT 3.98 M/uL (4.00-5.50); WHITE BLOOD COUNT 6.3 K/uL (4.1-10.2)
[2017-12-04 06:26] LABS: CHLORIDE 103 MEQ/L (99-109); CREATININE 1.7 MG/DL (0.6-1.3); GFR ESTIMATE (CALCULATED) 41 mL/min/ (58.99-99999); GLUCOSE 114 mg/dL (70-99); SODIUM 143 MEQ/L (136-147); UREA NITROGEN (BUN) 18 mg/dL (9-23)
[2017-12-04 06:27] LABS: POTASSIUM 3.3 MEQ/L (3.7-5.4)
[2017-12-04 07:14] VITALS: BP 114/56
[2017-12-04 16:23] VITALS: BP 105/51
[2017-12-04 23:30] VITALS: BP 114/53
[2017-12-05 06:19] LABS: CHLORIDE 99 MEQ/L (99-109); CREATININE 1.6 MG/DL (0.6-1.3); GFR ESTIMATE (CALCULATED) 44 mL/min/ (58.99-99999); GLUCOSE 131 mg/dL (70-99); POTASSIUM 3.2 MEQ/L (3.7-5.4); SODIUM 139 MEQ/L (136-147); UREA NITROGEN (BUN) 21 mg/dL (9-23)
[2017-12-05 08:25] VITALS: BP 113/59
[2017-12-05 16:28] VITALS: BP 91/55
[2017-12-06] VITALS: BP 97/53
[2017-12-06 06:08] LABS: BASOPHIL (%) 0.3 % (0-1); EOSINOPHIL (%) 0.7 % (0-5); EOSINOPHIL COUNT 0.1 K/uL (0-0.3); HEMOGLOBIN 10.9 G/DL (12.5-16.6); IMMATURE GRANULOCYTE (%) 0.6 % (0.0-0.7); LYMPHOCYTE (%) 16.5 % (15-42); LYMPHOCYTE COUNT 1.7 K/uL (1.0-2.8); MCH 31.9 PG (29.0-34.0); MCV 96.5 FL (86-99); MONOCYTE (%) 14.9 % (3-12); MONOCYTE COUNT 1.5 K/uL (0-0.8); NEUTROPHIL COUNT 6.9 K/uL (1.8-6.4); PLATELET COUNT 229 K/uL (156-360); RBC DIS.WIDTH-CV 13.4 % (11.8-14.6); RBC DIS.WIDTH-SD 48.1 % (39-53); RED BLOOD COUNT 3.42 M/uL (4.00-5.50); WHITE BLOOD COUNT 10.2 K/uL (4.1-10.2)
[2017-12-06 06:40] LABS: CHLORIDE 98 MEQ/L (99-109); GFR ESTIMATE (CALCULATED) 29 mL/min/ (58.99-99999); GLUCOSE 103 mg/dL (70-99); POTASSIUM 3.5 MEQ/L (3.7-5.4); SODIUM 142 MEQ/L (136-147)
[2017-12-06 06:42] LABS: CREATININE 2.3 MG/DL (0.6-1.3); UREA NITROGEN (BUN) 34 mg/dL (9-23)
[2017-12-06 07:05] VITALS: BP 94/54
[2017-12-06] MEDS ORDERED: MORPHINE CON20 MG/M1 SL (10:14)
[2017-12-06] MEDS ORDERED: PHENADOZ25 MG PR (10:14)
[2017-12-06] MEDS ORDERED: ATIVAN0.5 MG PO (10:38)
== END 2017-12-06 12:15 | disposition hospice, home (50) | DRG 389 ==
LOC: EME → EDBD 20:07 → EME 20:07 → 5EAST 11-30 01:00 → EDOF 11-30 01:00 → ENRESERV 11-30 01:19 → 5EAST 11-30 02:21
PROVIDERS: Emergency Medicine Emergency Medical Services; Family Medicine
DX: K56.0 Paralytic ileus (principal); J44.9 Chronic obstructive pulmonary disease, unspecified; J96.11 Chronic respiratory failure with hypoxia; Z99.81 Dependence on supplemental oxygen; E46 Unspecified protein-calorie malnutrition; Z68.1 Body mass index [BMI] 19.9 or less, adult; Z93.1 Gastrostomy status; I95.9 Hypotension, unspecified; D75.1 Secondary polycythemia; Z66 Do not resuscitate; Z51.5 Encounter for palliative care; E87.6 Hypokalemia; N18.3 Chronic kidney disease, stage 3 (moderate); F03.90 Unspecified dementia, unspecified severity, without behavioral disturbance, psychotic disturbance, mood disturbance, and anxiety; D64.9 Anemia, unspecified; N40.0 Benign prostatic hyperplasia without lower urinary tract symptoms; R26.9 Unspecified abnormalities of gait and mobility; M54.9 Dorsalgia, unspecified; H91.90 Unspecified hearing loss, unspecified ear; Z87.440 Personal history of urinary (tract) infections; Z87.01 Personal history of pneumonia (recurrent)
CPT/HCPCS: 71045; 74018; 74019; 74177; 80048; 80053; 81003; 83690; 83880; 84484; 85025; 93005; 94640; 94640 76; 94760; 94799; 99202; 99281; 99285; J1170; J1650; J1885; J2060; J2405; J2765; J7040